=== PATIENT | female | born 1955 | race Caucasian/White ===

== ENCOUNTER → 2020-10-01 10:30 | Outpatient (BNVA) | payer MEDICARE, SELFPAY | PROVIDERS: Visit Provider Emergency Medicine | DX: I10 Essential (primary) hypertension (principal); R60.9 Edema, unspecified; E66.9 Obesity, unspecified; G89.29 Other chronic pain; M25.561 Pain in right knee; M25.511 Pain in right shoulder | CPT/HCPCS: 73030; 73562; 80053; 80061; 83880; 84443; 85025 ==

== ENCOUNTER → 2020-12-27 09:46 | Outpatient (BNVA) | payer MEDICARE, SELFPAY | PROVIDERS: Visit Provider Nurse Practitioner Family | DX: G47.33 Obstructive sleep apnea (adult) (pediatric) (principal); R05 Cough | CPT/HCPCS: 71046 ==

== ENCOUNTER → 2021-05-09 14:40 | Outpatient (BNVA) | payer MEDICARE, SELFPAY | PROVIDERS: PCP Family Medicine; Visit Provider Family Medicine | DX: I10 Essential (primary) hypertension (principal); K21.9 Gastro-esophageal reflux disease without esophagitis; Z68.41 Body mass index [BMI] 40.0-44.9, adult; I16.0 Hypertensive urgency; F41.1 Generalized anxiety disorder | CPT/HCPCS: 80053 ==

== ENCOUNTER → 2021-08-24 00:01 | Outpatient (BNVA) | payer MEDICARE, SELFPAY | PROVIDERS: PCP Family Medicine; Visit Provider Family Medicine | DX: I10 Essential (primary) hypertension (principal); E78.2 Mixed hyperlipidemia; J32.9 Chronic sinusitis, unspecified; J34.2 Deviated nasal septum; J32.8 Other chronic sinusitis; G47.33 Obstructive sleep apnea (adult) (pediatric); R60.9 Edema, unspecified | CPT/HCPCS: 80048; 80061 ==

== ENCOUNTER 2024-06-04 03:38 | Emergency (ER) | payer MEDICARE, SELFPAY ==
[2024-06-04 03:40] VITALS: BP 131/100; PULSE 84; RESP 18; TEMP 36.9; O2SAT 98; BMI 39.4
--- NOTE | 2024-06-04 03:44 | XRR_ITS ---
PROCEDURE INFORMATION: Exam: XR Chest Exam date and time: 06/04/2024 4:04 AM Age: 69 years old Clinical indication: Bronchospasm and shortness of breath and wheezing; Prior surgery; Surgery date: 6+ months; Surgery type: Esophagus stretched TECHNIQUE: Imaging protocol: Radiologic exam of the chest. Views: 1 view. COMPARISON: CR XR chest 2V* [id number] 12/27/2020 9:57 AM FINDINGS: Lungs: Unremarkable. No consolidation. Pleural spaces: Unremarkable. No pleural effusion. No pneumothorax. Heart/Mediastinum: Unremarkable. No cardiomegaly. Bones/joints: Unremarkable. XR/XR chest 1V portable [id number] IMPRESSION: No acute findings.
--- NOTE | 2024-06-04 04:02 | W.ED.URI ---
HPI - URI/Sore Throat General: Chief Complaint: Upper Respiratory Infection Stated Complaint: cough/wheeze Time Seen by Provider: 06/04/24 03:44 History of Present Illness: 69-year-old female with a history of obstructive sleep apnea, anxiety, GERD, obesity who presents to the emergency room with shortness of breath. She says she started having a cold cough yesterday. She woke up overnight gasping for air. She received Solu-Medrol and breathing treatment in the ambulance and seems to be feeling better now. She does not have any oxygen requirement. She says she feels like something is in the center of her chest that is blocking her from breathing. She also does have a history of anxiety and seems that this is worsening things. No fevers. She does have a cough. No chest pain. No nausea or vomiting. Related Data Home Medications Medication Instructions Recorded Confirmed naproxen 250 mg tablet 250 mg PO BID PRN 10/01/20 08/24/21 Previous Rx's Medication Instructions Recorded miscellaneous medical supply See Rx Instructions miscellaneous 10/13/20 .COMPLEX #1 ea miscellaneous medical supply 1 ea miscellaneous DAILY #1 ea 12/23/20 albuterol sulfate 90 mcg/actuation 2 puff inhalation Q6H PRN 12/27/20 aerosol inhaler (ProAir HFA) shortness of breath or wheezing #8.5 grams fluticasone propionate 50 1 spray intranasal Q12H 30 days 03/18/21 mcg/actuation nasal #16 grams spray,suspension (Flonase Allergy Relief) amlodipine 10 mg tablet 10 mg PO DAILY 90 days #90 tabs 05/09/21 hydralazine 25 mg tablet 25 mg PO TID PRN high blood 05/09/21 pressure #30 tabs metoprolol succinate 100 mg 100 mg PO DAILY 90 days #90 tabs 05/09/21 tablet,extended release 24 hr omeprazole 20 mg capsule,delayed See Rx Instructions .Route 05/09/21 release .COMPLEX #90 caps atorvastatin 10 mg tablet 10 mg PO .at bedtime 90 days #90 08/24/21 tabs hydrochlorothiazide 25 mg tablet 25 mg PO QAM swelling, blood 08/24/21 pressure 90 days #90 tabs losartan 100 mg tablet 100 mg PO DAILY 90 days #90 tabs 04/28/22 benzonatate 100 mg capsule 100 mg PO TID PRN cough 30 days 12/13/21 #90 caps cyclobenzaprine 5 mg tablet 10 mg (2 x 5 mg) PO .at bedtime 01/07/22 PRN muscle spasm 30 days #60 tabs albuterol sulfate 90 mcg/actuation 2 inh inhalation Q4H PRN shortness 06/04/24 aerosol inhaler of breath or wheezing #6.7 grams benzonatate 200 mg capsule 200 mg PO TID PRN cough #30 caps 06/04/24 dexamethasone 6 mg tablet 6 mg PO DAILY 5 days #5 tabs 06/04/24 doxycycline hyclate 100 mg capsule 100 mg PO BID 7 days #14 caps 06/04/24 lorazepam 1 mg tablet (Ativan) 1 mg PO BID PRN anxiety #20 tabs 06/04/24 Allergies Allergy/AdvReac Type Severity Reaction Status Date / Time No Known Allergies Allergy Verified 06/04/24 03:44 Review of Systems Narrative: Constitutional symptoms: Negative except as documented in HPI. Skin symptoms: Negative except as documented in HPI. Eye symptoms: Negative except as documented in HPI. ENMT symptoms: Negative except as documented in HPI. Respiratory symptoms: Negative except as documented in HPI. Cardiovascular symptoms: Negative except as documented in HPI. Gastrointestinal symptoms: Negative except as documented in HPI. Genitourinary symptoms: Negative except as documented in HPI. Musculoskeletal symptoms: Negative except as documented in HPI. Neurologic symptoms: Negative except as documented in HPI. Psychiatric symptoms: Negative except as documented in HPI. Endocrine symptoms: Negative except as documented in HPI. [facility] ED PFSH: Medical History Chronic pain of right knee Chronic right shoulder pain SIMI (generalized anxiety disorder) GERD (gastroesophageal reflux disease) Hypertension Obesity (BMI 30-39.9) GENIA (obstructive sleep apnea) Osteopenia determined by x-ray Peripheral edema Social History Smoking and tobacco/nicotine status: never used tobacco/nicotine Second hand smoke exposure: No Alcohol intake: never Substance/Drug Use: never Lives independently: Yes Household members: spouse Marital status: Current occupational status: retired Do you think of yourself as: Straight/Heterosexual Current gender identity: Female Physical Exam Narrative: EXAM NARRATIVE: General: Alert, no acute distress. Skin: Warm, dry. Head: Normocephalic, atraumatic. Neck: Supple, trachea midline. Eye: Extraocular movements are intact. Ears, nose, mouth and throat: mucosa moist. Cardiovascular: Regular, Normal peripheral perfusion. Respiratory: Lungs are clear to auscultation, respirations are non-labored, breath sounds are equal, Symmetrical chest wall expansion. Gastrointestinal: Soft, Nontender, Non distended Musculoskeletal: Normal ROM, no deformity. Neurological: Alert and oriented, No focal neurological deficit observed. Psychiatric: Cooperative, appropriate mood & affect. Course Vital Signs: Vital signs: Vital Signs Temperature 98.4 F 06/04/24 03:40 Pulse Rate 85 06/04/24 04:18 Respiratory Rate 20 H 06/04/24 04:18 Blood Pressure 131/100 06/04/24 03:40 Pulse Oximetry 94 06/04/24 04:18 Oxygen Delivery Me thod Room Air 06/04/24 04:18 MDM - URI/Sore Throat Medical Decision Making Differential diagnosis for patient with shortness of breath includes but is not limited to and based on the above HPI, review of systems and physical exam: Pneumonia. Bronchitis. Asthma or COPD with acute exacerbation. Acute coronary syndrome / HI. Pulmonary embolism. Anxiety. Congestive heart failure. Viral infections including influenza and Covid-19. Atrial fibrillation. Anxiety. Pleural effusion. Pneumothorax. Orders placed to evaluate differential diagnosis based on the above differential, HPI and physical exam Lab Review: Laboratory results were reviewed and interpreted by myself the emergency room physician. No leukocytosis. No anemia. No renal failure. Flu COVID and RSV are negative. Chest x-ray: No acute process. No infiltrate. No pneumothorax. This was reviewed and interpreted by myself the emergency room physician. I also reviewed the radiology report. X-ray of the neck soft tissue: Maybe some mild narrowing of the upper airway but patient's symptoms are more in her central chest and not stridor. I reviewed the patient's medical record. Reexamination: Patient is much improved after Ativan and breathing treatments. I think she is having anxiety/panic attack when she has difficulty clearing her chest with cough. She agrees and feels much better after having Ativan. Assessment and plan: Upper respiratory infection Anxiety ? Decadron?breathing treatment - Discharged home - Discussed plan with patient. Answered any questions. - Evaluation and treatment of this problem were appropriate in the emergency setting. Lab Data 06/04/24 04:00 06/04/24 04:00 Radiology Impressions Chest X-Ray 06/04/24 03:44 IMPRESSION: No acute findings. Soft Tissue Neck X-Ray 06/04/24 04:07 IMPRESSION: 1. Narrowing of the subglottic airway on the AP view. Clinical correlation recommended. 2. Degenerative changes of the cervical spine. Laboratory Results WBC 10.10 10^3/uL (3.29-11.43) 06/04/24 04:00 RBC 4.07 10^6/uL (3.85-5.65) 06/04/24 04:00 Hgb 12.80 g/dL (11.27-16.99) 06/04/24 04:00 Hct 39.4 % (36-47) 06/04/24 04:00 MCV 96.8 fl (85-98) 06/04/24 04:00 MCH 31.4 pg (27-33) 06/04/24 04:00 MCHC 32.5 g/dL (30-55) 06/04/24 04:00 RDW 12.3 % (12.1-15.1) 06/04/24 04:00 Plt Count 297 10^3/cmm (157-399) 06/04/24 04:00 MPV 8.3 fL (7.4-10.4) 06/04/24 04:00 Neut % (Auto) 70.2 % 06/04/24 04:00 Lymph % (Auto) 18.8 % 06/04/24 04:00 [place] % (Auto) 8.3 % 06/04/24 04:00 Eos % (Auto) 1.9 % 06/04/24 04:00 Baso % (Auto) 0.5 % 06/04/24 04:00 Neut # (Auto) 7.09 10^3/uL (1.8-7.7) 06/04/24 04:00 Lymph # (Auto) 1.9 10^3/uL (0.8-4.8) 06/04/24 04:00 [place] # (Auto) 0.8 10^3/uL (0.2-0.9) 06/04/24 04:00 Eos # (Auto) 0.2 10^3/uL (0.0-0.8) 06/04/24 04:00 Baso # (Auto) 0.1 10^3/uL (0.0-0.1) 06/04/24 04:00 Nucleated RBC % (auto) 0 % 06/04/24 04:00 Nucleated RBCs # 0.0 /100WBC 06/04/24 04:00 Sodium 142 mmol/L (136-145) 06/04/24 04:00 Potassium 3.7 mmol/L (3.5-5.1) 06/04/24 04:00 Chloride 105 mmol/L (98-107) 06/04/24 04:00 Carbon Dioxide 22 mmol/L (22-29) 06/04/24 04:00 Anion Gap 18.7 (5-19) 06/04/24 04:00 BUN 16 mg/dL (8-23) 06/04/24 04:00 Creatinine 0.8 mg/dL (0.5-0.9) 06/04/24 04:00 GFR Calculation 71.1 mL/min (90-130) L 06/04/24 04:00 Glucose 110 mg/dL (65-115) 06/04/24 04:00 Calculated Osmolality 296 mOsm/kg (285-295) H 06/04/24 04:00 Calcium 8.8 mg/dL (8.5-10.5) 06/04/24 04:00 Total Bilirubin 0.4 mg/dL (0.15-1.2) 06/04/24 04:00 AST 31 U/L (0-32) 06/04/24 04:00 ALT 33 U/L (0-33) 06/04/24 04:00 Alkaline Phosphatase 114 U/L (35-105) H 06/04/24 04:00 Total Protein 7.0 g/dL (6.6-8.7) 06/04/24 04:00 Albumin 4.2 g/dL (3.5-5.2) 06/04/24 04:00 Globulin 2.8 g/dL (1.3-4.6) 06/04/24 04:00 Coronavirus (PCR) Negative (Negative) 06/04/24 03:50 Influenza A (PCR) Negative (Negative) 06/04/24 03:50 Influenza Type B (PCR) Negative (Negative) 06/04/24 03:50 RSV (PCR) Negative (Negative) 06/04/24 03:50 All radiology interpretation(s) finalized by discharge Discharge Plan Discharge Patient Disposition: Home Clinical Impression: Upper respiratory infection, Anxiety Condition: Stable Prescriptions: New benzonatate 200 mg capsule 200 mg PO TID PRN (Reason: cough) Qty: 30 0RF albuterol sulfate 90 mcg/actuation HFA aerosol inhaler 2 inh inhalation Q4H PRN (Reason: shortness of breath or wheezing) Qty: 6.7 0RF Rx Instructions: Please provide patient with a spacer doxycycline hyclate 100 mg capsule 100 mg PO BID 7 Days Qty: 14 0RF dexamethasone 6 mg tablet 6 mg PO DAILY 5 Days Qty: 5 0RF lorazepam [Ativan] 1 mg tablet 1 mg PO BID PRN (Reason: anxiety) Qty: 20 0RF No Action miscellaneous medical supply Misc See Rx Instructions miscellaneous .COMPLEX Qty: 1 11RF Rx Instructions: CPAP supplies, mask, tubing, etc miscellaneous; miscellaneous medical supply Misc 1 ea miscellaneous DAILY Qty: 1 0RF Rx Instructions: CPAP machine naproxen 250 mg tablet 250 mg PO BID PRN fluticasone propionate [Flonase Allergy Relief] 50 mcg/actuation spray,suspension 1 spray intranasal Q12H 30 Days Qty: 16 2RF Rx Instructions: administer into each nostril metoprolol succinate 100 mg tablet extended release 24 hr 100 mg PO DAILY 90 Days Qty: 90 1RF amlodipine 10 mg tablet 10 mg PO DAILY 90 Days Qty: 90 1RF omeprazole 20 mg capsule,delayed release(DR/EC) See Rx Instructions .ROUTE .COMPLEX Qty: 90 1RF Dose Instruction: Take 1 capsule by mouth once daily for 90 days Rx Instructions: Take 1 capsule by mouth once daily for 90 days hydralazine 25 mg tablet 25 mg PO TID PRN (Reason: high blood pressure) Qty: 30 1RF hydrochlorothiazide 25 mg tablet 25 mg PO QAM 90 Days Qty: 90 1RF atorvastatin 10 mg tablet 10 mg PO .at bedtime 90 Days Qty: 90 1RF albuterol sulfate [ProAir HFA] 90 mcg/actuation HFA aerosol inhaler 2 puff inhalation Q6H PRN (Reason: shortness of breath or wheezing) Qty: 8.5 0RF losartan 100 mg tablet 100 mg PO DAILY 90 Days Qty: 90 1RF benzonatate 100 mg capsule 100 mg PO TID PRN (Reason: cough) 30 Days Qty: 90 2RF cyclobenzaprine 5 mg tablet 10 mg PO .at bedtime PRN (Reason: muscle spasm) 30 Days Qty: 60 0RF Discharge Orders: Discharge ED (Routine); Ordered 06/04/24 Ordered By: Mariam Brooke Referrals: Erika Hope MD [Physician] - Discharge Diet: Usual diet Patient Instructions: Upper Respiratory Infection (ED), Opioid Safety, Pain Management Activity Restrictions/Additional Instructions: Thank you for choosing [facility] for your healthcare needs today. Please realize this is an emergency room and that we are providing you with a medical screening exam and this may not be complete and all inclusive of all the testing and or work up that you may need to determine your ailment or severity of your illness. You have been screened and evaluated and felt safe for discharge. Health conditions do change or evolve sometimes and as such it is important that you follow up with your Primary Doctor to be re checked, 3-5 days is a general good time frame for follow up. You are always welcome to return to the ED for re assessment if your symptoms are worsening or you have new concerns Coding Level of Care Code ED Medical Data Entry Clerk for Jose Fulton
[2024-06-04 04:04] LABS: Basophils # 0.1 10^3/uL (0.0-0.1); Basophils % 0.5 %; Eosinophils # 0.2 10^3/uL (0.0-0.8); Eosinophils % 1.9 %; Hematocrit 39.4 % (36-47); Lymphocytes # 1.9 10^3/uL (0.8-4.8); Lymphocytes % 18.8 %; Mean Corpuscular HGB Conc 32.5 g/dL (30-55); Mean Corpuscular Hemoglobin 31.4 pg (27-33); Mean Corpuscular Volume 96.8 fl (85-98); Mean Platelet Volume 8.3 fL (7.4-10.4); Monocytes # 0.8 10^3/uL (0.2-0.9); Monocytes % 8.3 %; Neutrophils # 7.09 10^3/uL (1.8-7.7); Neutrophils % 70.2 %; Nucleated Red Blood Cells % 0 %; Platelet Count 297 10^3/cmm (157-399); Red Blood Count 4.07 10^6/uL (3.85-5.65); Red Cell Distribution Width 12.3 % (12.1-15.1)
--- NOTE | 2024-06-04 04:07 | XRR_ITS ---
PROCEDURE INFORMATION: Exam: XR Soft Tissue Neck Exam date and time: 06/04/2024 4:07 AM Age: 69 years old Clinical indication: Dysphagia / difficulty swallowing; Prior surgery; Surgery date: 6+ months; Surgery type: Esophagus stretched over a year ago; Additional info: Stridor TECHNIQUE: Imaging protocol: Radiologic exam of the soft tissues of the neck. COMPARISON: CR (CHEST, ) 06/04/2024 4:04 AM FINDINGS: Airway: In the AP view, there is narrowing of the subglottic airway. No abnormality identified on the lateral view. No radiopaque foreign body visualized. Soft tissues: Normal. Normal epiglottis. Bones/joints: No spine curvature seen. The normal cervical lordosis is maintained, without listhesis. No fracture identified. Vertebral body heights are well preserved. There are multilevel degenerative changes, manifested by intervertebral disc space narrowing, and facet joint arthrosis. XR/XR soft tissue neck [id number] IMPRESSION: 1. Narrowing of the subglottic airway on the AP view. Clinical correlation recommended. 2. Degenerative changes of the cervical spine.
--- NOTE | 2024-06-04 04:07 | PC.NURSE ---
pt began to have difficulty breathing. pt was gasping for air when this nurse arrived to the room. pts O2 sat was 78%. pt was placed on a NRB and verbally coached to relax and calm her breathing. pt was able to return to a normal breathing pattern. ER physician was called to the room and pt was evaluated
[2024-06-04 04:14] VITALS: BP 145/103; PULSE 88; O2SAT 98
[2024-06-04] MEDS: racepinephrine 0.5 mL Neb INHALATION (04:17)
[2024-06-04 04:18] VITALS: PULSE 85; RESP 20; O2SAT 94
[2024-06-04 04:22] LABS: Alanine Aminotransferase 33 U/L (0-33); Albumin Level 4.2 g/dL (3.5-5.2); Alkaline Phosphatase 114 U/L (35-105); Anion Gap 18.7 (5-19); Aspartate Amino Transferase 31 U/L (0-32); Blood Urea Nitrogen 16 mg/dL (8-23); Calcium 8.8 mg/dL (8.5-10.5); Carbon Dioxide 22 mmol/L (22-29); Chloride 105 mmol/L (98-107); Creatinine Clr Calc Pharmacy 78.1097; Globulin 2.8 g/dL (1.3-4.6); Glomerular Filtration Rate 71.1 mL/min (90-130); Glucose 110 mg/dL (65-115); Osmolality Calculated 296 mOsm/kg (285-295); Potassium 3.7 mmol/L (3.5-5.1); Sodium 142 mmol/L (136-145); Total Bilirubin 0.4 mg/dL (0.15-1.2)
[2024-06-04] MEDS: LORazepam 2 mg/mL INJ 1 mL 1 MG IVP (04:32)
[2024-06-04] MEDS: dexamethasone 10 mg/mL INJ IVP (04:33)
[2024-06-04 04:42] LABS: Covid PCR NEGATIVE (Negative); Influenza A NEGATIVE (Negative); Influenza B NEGATIVE (Negative); Respiratory Syncytial Virus Ce NEGATIVE (Negative)
[2024-06-04 04:44] VITALS: BP 136/80; PULSE 76; O2SAT 98
[2024-06-04 05:52] VITALS: BP 128/84; PULSE 89; O2SAT 98
== END 2024-06-04 05:54 | disposition home or self-care (01) ==
PROVIDERS: Emergency Provider Emergency Medicine; PCP Family Medicine
DX: J06.9 Acute upper respiratory infection, unspecified (principal); F41.9 Anxiety disorder, unspecified; Z11.52 Encounter for screening for COVID-19; I10 Essential (primary) hypertension
CPT/HCPCS: 0241U; 36415; 70360; 71045; 80053; 85025; 94640; 96374; 96375; 99284; J1100; J2060